=== PATIENT | male | born 1980 | race Caucasian/White ===

== ENCOUNTER 2018-06-22 02:06 | Emergency (ER) | payer SELFPAY ==
[~2018-06-22] VITALS: Ht 185.4 cm; Wt 111.1 kg
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
[2018-06-22] MEDS ORDERED: ORPHENADRINE CITRATE 60 MG/2 ML VIAL. IV ONE (03:00)
[2018-06-22] MEDS ORDERED: KETOROLAC 15 MG/ML VIAL. IV ONE (03:00)
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
[2018-06-22 03:11] VITALS: BP 131/90
[2018-06-22] MEDS ORDERED: NAPR-514 PO (03:11)
[2018-06-22] MEDS ORDERED: ORPH100T PO (03:11)
== END 2018-06-22 03:41 | disposition home or self-care (01) ==
LOC: ER 02:06
DX: M54.6 Pain in thoracic spine (principal); Z87.442 Personal history of urinary calculi; F17.220 Nicotine dependence, chewing tobacco, uncomplicated; Z88.5 Allergy status to narcotic agent; Z88.8 Allergy status to other drugs, medicaments and biological substances; V47.6XXA Car passenger injured in collision with fixed or stationary object in traffic accident, initial encounter; Y93.89 Activity, other specified; Y92.410 Unspecified street and highway as the place of occurrence of the external cause; Y99.8 Other external cause status
CPT/HCPCS: 70450; 72125; 96374; 96375; 99284; J1885; J2360